=== PATIENT | female | born 1985 | race Caucasian/White ===

== ENCOUNTER 2020-08-01 15:28 | Emergency (ER) | payer SELFPAY ==
[~2020-08-01] VITALS: Ht 172.7 cm; Wt 86.4 kg
[~2020-08-01 15:28] MED LIST: HYDROCODONE-APA1 TAB PO
[2020-08-01 15:31] VITALS: Ht 172.7 cm; Wt 86.4 kg
[2020-08-01] MEDS ORDERED: DICLOFENAC SODI50 MG PO (17:01)
[2020-08-01 18:13] VITALS: BP 129/78
== END 2020-08-01 18:13 | disposition home or self-care (01) ==
LOC: D.ER 15:28
DX: M25.562 Pain in left knee (principal); M23.8X2 Other internal derangements of left knee